=== PATIENT | female | born 1950 | race African-American/Black ===

== ENCOUNTER 2021-07-24 13:20 | Emergency (ER) | payer MEDICAID, MEDICARE ==
[~2021-07-24] VITALS: Ht 170.2 cm; Wt 59.0 kg
[2021-07-24] MEDS ORDERED: DEXAMETHASONE 10 MG/ML VIAL IV ONE (13:45)
[2021-07-24] MEDS ORDERED: TRANEXAMIC ACID 1,000 MG/10 ML IV ONE (13:45)
[2021-07-24] MEDS ORDERED: RACEPINEPHRINE 2.25% 0.5ML NEB VIAL HHN ONE (13:45)
[2021-07-24 14:03] LABS: BASOPHILS % 0.5 % (0.0-2.0); EOSINOPHILS % 0.7 % (0.0-5.0); HEMATOCRIT. 43.4 % (36.0-48.0); HEMOGLOBIN. 14.1 g/dL (12.0-16.0); LYMPHOCYTES % 22.3 % (20.0-50.0); MEAN CORPUSCULAR HEMOGLOBIN 31.1 pg (28.0-32.0); MEAN CORPUSCULAR VOLUME 95.7 fL (81.0-99.0); MEAN PLATELET VOLUME 8.4 fl (7.4-10.4); NEUTROPHILS % 69.5 % (40.0-76.0); PLATELET 282 x1000/uL (130-400); RED BLOOD CELL COUNT 4.53 mill/uL (4.2-5.4); RED CELL DISTRIBUTION WIDTH 15.1 % (11.6-14.6)
[2021-07-24 14:09] LABS: CHLORIDE 104 mEq/L (98-107)
[2021-07-24] MEDS ORDERED: FAMOTIDINE 20MG/2ML VIAL IV ONE (14:15)
[2021-07-24] MEDS ORDERED: DIPHENHYDRAMINE 50MG/ML VIAL IV ONE (14:15)
[2021-07-24 19:19] VITALS: BP 177/109
== END 2021-07-24 19:25 | disposition left against medical advice (07) ==
LOC: ER 13:20 → CANBEDREQ 19:49
DX: T78.3XXA Angioneurotic edema, initial encounter (principal); I10 Essential (primary) hypertension; J44.1 Chronic obstructive pulmonary disease with (acute) exacerbation; Z20.822 Contact with and (suspected) exposure to COVID-19; Z13.9 Encounter for screening, unspecified; Z88.0 Allergy status to penicillin; Z88.1 Allergy status to other antibiotic agents; Z91.013 Allergy to seafood
CPT/HCPCS: 36415; 71045; 80053; 83880; 84484; 85025; 86850; 86900; 86901; 86927; 87426; 93005; 96374; 96375; 99291; J1100; J1200; J3490; P9017